=== PATIENT | male | born 1965 | race Caucasian/White ===

== ENCOUNTER 2021-07-10 18:07 | Emergency (ER) | payer MEDICAID ==
[~2021-07-10] VITALS: Ht 167.6 cm; Wt 63.5 kg
[2021-07-10 18:25] VITALS: BP 116/72
--- NOTE | 2021-07-10 18:51 | NUR ---
Patient discharged to home in stable condition. Written and verbal after care instructions given. Patient verbalizes understanding of instruction.
== END 2021-07-10 18:52 | disposition home or self-care (01) ==
LOC: ER 18:19
DX: U07.1 COVID-19 (principal)